=== PATIENT | female | born 1975 | race Asian ===

== ENCOUNTER 2024-02-23 13:09 | Emergency (ER) | payer BC, MEDICAID ==
[~2024-02-23] VITALS: Ht 154.9 cm; Wt 72.6 kg
[2024-02-23 13:27] VITALS: O2SAT 95
== END 2024-02-23 14:00 | disposition home or self-care (01) ==
LOC: ER 13:11
DX: S00.83XA Contusion of other part of head, initial encounter (principal); W22.8XXA Striking against or struck by other objects, initial encounter; Y93.89 Activity, other specified; Y92.89 Other specified places as the place of occurrence of the external cause; Y99.8 Other external cause status
CPT/HCPCS: A4606; A4663